=== PATIENT | female | born 1965 | race Caucasian/White ===

== ENCOUNTER 2018-10-01 12:34 | Inpatient (IN) | payer BC, OTHER ==
[2018-10-01 13:50] LABS: ADD MAN DIFF? NO
[2018-10-01 13:57] LABS: BASOPHILS % 0.3 % (0.0-2.0); EOSINOPHILS # 0.2 10^3/ul (0.0-0.5); EOSINOPHILS % 3.3 % (0.0-7.0); HEMATOCRIT 39.6 % (37.0-47.0); HEMOGLOBIN 13.2 g/dl (12.0-16.0); LYMPHOCYTES # 3.4 10^3/ul (0.8-2.9); LYMPHOCYTES % 55.7 % (15.0-51.0); MEAN CORPUSCULAR HEMOGLOBIN 29.3 pg (29.0-33.0); MEAN CORPUSCULAR HGB CONC 33.3 g/dl (32.0-37.0); MEAN PLATELET VOLUME 11.3 fl (7.4-10.4); MONOCYTE # 0.5 10^3/ul (0.3-0.9); MONOCYTES % 7.6 % (0.0-11.0); NEUTROPHILS % 32.9 % (39.0-77.0); PLATELET COUNT 211 10^3/UL (140-415); RED CELL DISTRIBUTION WIDTH 12.1 % (11.5-14.5)
[2018-10-01 13:57] LABS: WHITE BLOOD COUNT 6.1 10^3/ul (4.8-10.8)
[2018-10-01 14:11] LABS: ALANINE AMINOTRANSFERASE 39 IU/L (13-69); ALBUMIN 4.5 g/dl (3.3-4.9); ALBUMIN/GLOBULIN RATIO 1.32; ALKALINE PHOSPHATASE 142 IU/L (42-121); ANION GAP 9 (5-13); ASPARTATE AMINO TRANSFERASE 33 IU/L (15-46); BILIRUBIN,INDIRECT 0.7 mg/dl (0-1.1); BILIRUBIN,TOTAL 0.7 mg/dl (0.2-1.3); BLOOD UREA NITROGEN 18 mg/dl (7-20); CALCIUM 9.4 mg/dl (8.4-10.2); CARBON DIOXIDE 26 mmol/L (21-31); CHLORIDE 108 mmol/L (97-110); CREATININE 0.51 mg/dl (0.44-1.00); Estimated GFR > 60 mL/min (>60); GLUCOSE 93 mg/dl (70-220); POTASSIUM 4.1 mmol/L (3.5-5.1); SODIUM 143 mmol/L (135-144); TOTAL PROTEIN 7.9 g/dl (6.1-8.1)
[2018-10-01 14:13] LABS: INR 0.93; PROTIME 12.6 Sec (11.9-14.9)
[2018-10-01 14:19] LABS: PARTIAL THROMBOPLASTIN TIME 35.6 Sec (23.0-35.0)
[2018-10-01] MEDS ORDERED: PROPOFOL 20 ML ×2 (15:44→16:55)
[2018-10-01] MEDS ORDERED: MIDAZOLAM 1 MG/ML 2 ML INJ (15:44)
[2018-10-01] MEDS ORDERED: ONDANSETRON 4 MG INJ (15:44)
[2018-10-01] MEDS ORDERED: ROCURONIUM 50 MG INJ (15:44)
[2018-10-01] MEDS ORDERED: METOCLOPRAMIDE 10 MG INJ (15:44)
[2018-10-01] MEDS ORDERED: CEFAZOLIN 1 GM INJ (15:44)
[2018-10-01] MEDS ORDERED: FENTAnyl 50 MCG/ML VIAL (16:45)
[2018-10-01] MEDS ORDERED: EPHEDrine 25 MG/5 ML SYG (16:50)
[2018-10-01] MEDS ORDERED: PHENYLephrine (100 MCG/ML) 10ML SYG (16:55)
[2018-10-01] MEDS ORDERED: HYDROmorphONE 2 MG/ML SYG (16:59)
[2018-10-01] MEDS ORDERED: DEXAMETHASONE 4 MG/ML 5 ML INJ (17:01)
[2018-10-01] MEDS: THROMBIN 5000 UNIT VIAL (17:35)
[2018-10-01] MEDS: GELATIN SIZE 100 SPONGE (17:35)
[2018-10-01] MEDS: POLYMYXIN/BACITRACIN 1L IRRIG IRR (17:36)
[2018-10-01] MEDS ORDERED: MEPERIDINE 25 MG INJ IV (18:30)
[2018-10-01] MEDS ORDERED: HYDROmorphONE 1 MG/5 ML IV SYRINGE IV ×3 (18:30)
[2018-10-01] MEDS ORDERED: DIPHENHYDRAMINE 50 MG INJ IV (18:30)
[2018-10-01] MEDS ORDERED: AL HYDROX/MG HYDROX/SIMETH 30 ML CUP PO (19:00)
[2018-10-01] MEDS ORDERED: NALOXONE (0.4 MG/ML) INJ IV (19:00)
[2018-10-01] MEDS ORDERED: HYDROCODONE/APAP (5/325) TAB PO (19:00)
[2018-10-01] MEDS ORDERED: HYDROmorphONE 0.5 MG/0.5 ML SYG IV (19:00)
[2018-10-01] MEDS ORDERED: NACL 0.9% 3 ML SYG IV (19:00)
[2018-10-01] MEDS: ONDANSETRON 4 MG INJ IV (20:31)
[2018-10-01] MEDS: DOCUSATE SODIUM 100 MG CAP PO (20:32)
[2018-10-01] MEDS: CEFAZOLIN 2 GM/50 ML (PMX) 50 ML IVPB (21:24)
[2018-10-01] MEDS: NS + KCL 20 MEQ 1,000 ML IV (21:24)
[2018-10-02] MEDS: NS + KCL 20 MEQ 1,000 ML IV ×4 (05:39→20:29)
[2018-10-02] MEDS: CEFAZOLIN 2 GM/50 ML (PMX) 50 ML IVPB ×3 (05:54→21:16)
[2018-10-02 06:01] LABS: HEMOGLOBIN 11.7 g/dl (12.0-16.0)
[2018-10-02 06:34] LABS: ANION GAP 8 (5-13); BLOOD UREA NITROGEN 12 mg/dl (7-20); CALCIUM 8.4 mg/dl (8.4-10.2); CARBON DIOXIDE 23 mmol/L (21-31); CHLORIDE 110 mmol/L (97-110); Estimated GFR > 60 mL/min (>60); GLUCOSE 151 mg/dl (70-220); POTASSIUM 4.3 mmol/L (3.5-5.1); SODIUM 141 mmol/L (135-144)
[2018-10-02] MEDS: DOCUSATE SODIUM 100 MG CAP PO ×2 (08:53→21:16)
[2018-10-02] MEDS: ONDANSETRON 4 MG INJ IV (11:18)
[2018-10-02] MEDS ORDERED: NS + KCL 20 MEQ 1,000 ML IV (14:30)
[2018-10-03] MEDS: CEFAZOLIN 2 GM/50 ML (PMX) 50 ML IVPB ×3 (05:50→22:00)
[2018-10-03] MEDS: HYDROCODONE/APAP (5/325) TAB PO (05:51)
[2018-10-03] MEDS: DOCUSATE SODIUM 100 MG CAP PO ×2 (09:02→21:03)
[2018-10-03 10:23] LABS: ADD MAN DIFF? NO
[2018-10-03 10:24] LABS: BASOPHILS % 0.3 % (0.0-2.0); EOSINOPHILS % 0.4 % (0.0-7.0); HEMATOCRIT 31.7 % (37.0-47.0); HEMOGLOBIN 10.5 g/dl (12.0-16.0); LYMPHOCYTES # 4.5 10^3/ul (0.8-2.9); LYMPHOCYTES % 40.6 % (15.0-51.0); MEAN CORPUSCULAR HGB CONC 33.1 g/dl (32.0-37.0); MEAN CORPUSCULAR VOLUME 90.6 fl (82.0-101.0); MEAN PLATELET VOLUME 11.1 fl (7.4-10.4); MONOCYTE # 0.6 10^3/ul (0.3-0.9); MONOCYTES % 5.6 % (0.0-11.0); NEUTROPHIL # 5.8 10^3/ul (1.6-7.5); NEUTROPHILS % 52.9 % (39.0-77.0); PLATELET COUNT 172 10^3/UL (140-415); RED CELL DISTRIBUTION WIDTH 12.7 % (11.5-14.5)
[2018-10-03 10:43] LABS: ANION GAP 8 (5-13); BLOOD UREA NITROGEN 9 mg/dl (7-20); CALCIUM 8.3 mg/dl (8.4-10.2); CARBON DIOXIDE 24 mmol/L (21-31); CHLORIDE 108 mmol/L (97-110); CREATININE 0.51 mg/dl (0.44-1.00); Estimated GFR > 60 mL/min (>60); GLUCOSE 127 mg/dl (70-220); POTASSIUM 3.7 mmol/L (3.5-5.1); SODIUM 140 mmol/L (135-144)
[2018-10-04 05:36] LABS: ADD MAN DIFF? NO
[2018-10-04 05:40] LABS: WHITE BLOOD COUNT 9.7 10^3/ul (4.8-10.8)
[2018-10-04 05:40] LABS: BASOPHILS % 0.3 % (0.0-2.0); EOSINOPHILS # 0.3 10^3/ul (0.0-0.5); EOSINOPHILS % 2.6 % (0.0-7.0); HEMATOCRIT 36.7 % (37.0-47.0); HEMOGLOBIN 12.2 g/dl (12.0-16.0); LYMPHOCYTES # 4.3 10^3/ul (0.8-2.9); LYMPHOCYTES % 44.8 % (15.0-51.0); MEAN CORPUSCULAR HEMOGLOBIN 29.5 pg (29.0-33.0); MEAN CORPUSCULAR HGB CONC 33.2 g/dl (32.0-37.0); MEAN CORPUSCULAR VOLUME 88.9 fl (82.0-101.0); MEAN PLATELET VOLUME 11.4 fl (7.4-10.4); MONOCYTE # 0.7 10^3/ul (0.3-0.9); MONOCYTES % 7.5 % (0.0-11.0); NEUTROPHIL # 4.3 10^3/ul (1.6-7.5); NEUTROPHILS % 44.7 % (39.0-77.0); PLATELET COUNT 192 10^3/UL (140-415); RED BLOOD COUNT 4.13 10^6/ul (4.20-5.40); RED CELL DISTRIBUTION WIDTH 12.5 % (11.5-14.5)
[2018-10-04 06:31] LABS: ANION GAP 6 (5-13); BLOOD UREA NITROGEN 10 mg/dl (7-20); CARBON DIOXIDE 29 mmol/L (21-31); CHLORIDE 105 mmol/L (97-110); CREATININE 0.53 mg/dl (0.44-1.00); Estimated GFR > 60 mL/min (>60); GLUCOSE 107 mg/dl (70-220); SODIUM 140 mmol/L (135-144)
[2018-10-04] MEDS: DOCUSATE SODIUM 100 MG CAP PO (08:19)
== END 2018-10-04 18:50 | disposition home or self-care (01) | DRG 473 ==
LOC: REC 12:34 → ICU 19:07 → MS1 10-02 22:35
PROC: 0RT30ZZ Resection of Cervical Vertebral Disc, Open Approach (ICD-10-PCS; principal; 2018-10-01 15:00)
PROC: XRG2092 Fusion of 2 or more Cervical Vertebral Joints using Nanotextured Surface Interbody Fusion Device, Open Approach, New Technology Group 2 (ICD-10-PCS; 2018-10-01 15:00)
DX: M47.12 Other spondylosis with myelopathy, cervical region (principal)
CPT/HCPCS: 71045; 72020; 72125; 80048; 80053; 85014; 85018; 85025; 85610; 85730; 86850; 86900; 86901; 87081; 88304; 93005; 97116; 97161; 97530